=== PATIENT | male | born 1970 | race Caucasian/White ===

== ENCOUNTER 2023-12-23 09:42 | Emergency (ER) | payer OTHER, SELFPAY ==
[2023-12-23 09:45] VITALS: BP 147/86
--- NOTE | 2023-12-23 10:12 | ED.GENMED ---
History of Present Illness
General
Chief Complaint: Flank Pain
Source: patient and spouse
Exam Limitations: none
Time Seen by Provider: 12/23/23 10:06
Nursing documentation reviewed up to this point in time: agreed with
Travel History
Have you had any contact with someone who has COVID-19?: No
Do you have any symptoms of coronavirus? Fever > 100 degrees, chills, cough, shortness of breath, sore throat, loss of taste or smell, muscle aches, or headache?: No
History of Present Illness
History of Present Illness:
Patient presents to ED secondary to urinary difficulty since yesterday, along with sudden onset of right lower abdominal pain radiating down to his groin and back since this morning. Patient has taken ibuprofen without relief in symptoms. Denies
fever or chills. Denies diarrhea. Denies trauma. Denies back pain. Denies inability to urinate. There is family history of kidney stones. Patient denies previous history of similar symptoms.
Past History
Past History
ED Past Medical History: None
ED Past Surgical History: Orthopedic
Social History
Tobacco: Non-smoker
Alcohol: None
Drug: None
Personal:
Living: with family
Review of Systems
Review of Systems
Allergies reviewed?: Yes
All Other Systems: ROS reviewed and negative except as documented in HPI and ROS
Constitutional: Reports no symptoms; Denies fever
EENT: Reports no symptoms
Respiratory: Reports no symptoms
Cardiac: Reports no symptoms
ABD/GI: Reports abdominal pain, nausea and vomiting
: Reports flank pain and urgency
Musculoskeletal: Reports no symptoms
Skin: Reports no symptoms
Neurological: Reports no symptoms
Phy Exam
Physical Exam
Physical Exam:
Physical Exam
General: moderate painful distress, not acutely ill. afebrile
Head: nc/at. eomi
Neck: supple. normal range of motion.
Abdomen: normal bowel sounds. not tender. no cva tenderness.
Neuro: alert and oriented. no focal neurological deficits
Skin: no rash
Psychiatric: well kept. interactive and cooperative
Extremities: no edema. no calf tenderness.
Course
Orders/Labs/Results
Orders:
Orders
12/23/23 10:09
Urinalysis Reflex To Culture Urgent
Date Specimen was Collected: 12/23/23
Time Specimen was Collected: 10:08
Urine Microscopic Reflex Cult Urgent
12/23/23 10:11
CT Abd/pel Without Iv Or Oral Urgent
Comment:
Reason For Exam: right flank pain
0.9% Sodium Chloride 500 ml [Nss] 500 ml IV BOLUS
Ketorolac [Toradol] 15 mg IV NOW STA
Morphine Sulfate 2 mg IV NOW STA
Ondansetron Injectable [Zofran] 4 mg IV NOW STA
12/23/23 10:14
Basic Metabolic Panel Urgent
Complete Blood Count/With Diff Urgent
12/23/23 10:48
HYDROmorphone [Dilaudid] 0.5 mg IV NOW STA
Abnormal Lab Results
12/23/23 12/23/23
10:09 10:14
MCH 31.9 H pg
(27.0-31.0)
Absolute Neuts (auto) 6.7 H 10^3/uL
(1.4-6.5)
Lymphocytes % 18.2 L %
(20.5-51.1)
Glucose 143 H mg/dl
(70-99)
Urine Ketones 1+ A
(Negative)
Ur Occult Blood Reflex 3+ A
(Negative)
Urine RBC 7-10 A /HPF
(0-2)
12/23/23 10:14
12/23/23 10:14
Vital Signs
Initial and Last Documented VS:
Initial Vital Signs
Temp Pulse BP Pulse Ox
97.8 F 73 147/86 98
12/23/23 09:45 12/23/23 09:45 12/23/23 09:45 12/23/23 09:45
Last Documented Vital Signs
Temp Pulse Resp BP Pulse Ox
97.8 F 71 16 138/88 99
12/23/23 09:45 12/23/23 11:50 12/23/23 11:50 12/23/23 11:50 12/23/23 11:50
MDM/Problems Addressed
MDM/Problems Addressed:
History/exam and CT scan consistent with renal colic. Normal renal function and patient able to void freely. Pt with sig. improvement in symptoms after treatment. Pt will be discharged home with urine strainer, to the care of his spouse, with
referral to urology for outpatient evaluation. Return precautions provided, i.e. fever/inability to urinate/worsening pain. Pt expresses understanding at time of discharge.
*Critical Care Note
Total Time (30-74mins, 75-104mins- exclusive of procedures): Not Applicable
ED Attending Note
-
Portions of this chart may have been created with voice recognition software.� Occasional wrong word or��sound alike� substitutions may have occurred due to the inherent limitations of voice recognition software.
Discharge Plan
Departure
Patient Disposition: Home (Routine Discharge)
Date of Disposition: 12/23/23
Time of Disposition: 11:43
Patient with high blood pressure during this ER visit?: Yes
Discharge Problem:
Renal colic
Instructions: Renal Colic (DC)
Prescriptions:
New
oxycodone-acetaminophen [Percocet] 5-325 mg Tablet
1 tab PO Q6HPRN PRN (Reason: pain) Qty: 15 0RF
tamsulosin [Flomax] 0.4 mg Capsule
0.4 mg PO DAILY Qty: 7 0RF
ondansetron 4 mg Tablet,Disintegrating
4 mg PO TIDPRN PRN (Reason: nausea/vomiting) Qty: 12 0RF
No Action
acetaminophen [Tylenol Extra Strength] 500 mg Tablet
1,000 mg PO Q6HPRN PRN (Reason: mild pain)
amoxicillin-pot clavulanate [amoxicillin-pot clavulanate] 875-125 mg tablet
1 tab PO Q12 Qty: 14 0RF
oxycodone 5 mg tablet
5 - 10 mg PO Q4HPRN PRN (Reason: moderate to severe pain) Qty: 14 0RF
Referrals:
Yeyo Harper MD [Family Provider] -
Lisandro Betts Jr., MD [Active] -
Activity Restrictions/Additional Instructions:
As discussed, please follow-up with referred urologist for further evaluation and treatment. Please return to ED with worsening symptoms, i.e. fever/inability urinate/worsening pain. Your prescriptions have been sent electronically to [facility] pharmacy
in [place].
Interventions
Interventions:
*Risk Screen - Suicide Last Done: 12/23/23 10:24
*General Assessment Last Done: 12/23/23 10:24
*Neglect/Abuse Screening Last Done: 12/23/23 10:24
ED- Fall Risk Assessment Last Done: 12/23/23 11:54
*ED COVID-19 Vaccine History Last Done: 12/23/23 10:24
*Nursing Disposition Last Done: 12/23/23 11:54
WW-Pkddln-Qfdsqmnlcl Assessment Last Done: 12/23/23 10:23
ED-Male Genitourinary Assessment Last Done: 12/23/23 10:23
Discharge Date and Time
Discharge Date/Time: 12/23/23 11:55
Print Language: BULGARIAN
[2023-12-23 10:19] LABS: Urine Albumin Negative (Neg - Trace); Urine Bilirubin Negative (Negative); Urine Character Clear (Clear); Urine Color Yellow; Urine Glucose Negative (Negative); Urine Ketone 1+ (Negative); Urine Leukocyte Negative (Negative); Urine Nitrite Negative (Negative); Urine Occult Blood 3+ (Negative); Urine Specific Gravity 1.025 (<1.030); Urine Urobilinogen Negative (Neg - 1+)
[2023-12-23] MEDS: MORPHINE SULFATE 2 MG IV (10:20)
[2023-12-23] MEDS: NSS 500 IV (10:21)
[2023-12-23] MEDS: TORADOL 15 MG IV (10:21)
[2023-12-23] MEDS: ZOFRAN 4 MG IV (10:21)
[2023-12-23 10:27] LABS: % Basophils 0.4 % (0-2); % Eosinophils 0.5 % (0-6); % Immature Granulocytes 0.3 % (0-0.5); % Lymphocytes 18.2 % (20.5-51.1); % Neutrophils 73.6 % (42.2-75.2); Absolute Eosinophils 0.1 10^3/uL (0-0.7); Absolute Lymphocytes 1.7 10^3/uL (1.2-3.4); Absolute Monocytes 0.6 10^3/uL (0.1-0.6); Absolute Neutrophils 6.7 10^3/uL (1.4-6.5); Hemoglobin 15.2 g/dL (13.0-18.0); Mean Corp Hgb Conc. 36.2 g/dL (33.0-37.0); Mean Corpuscular Hgb 31.9 pg (27.0-31.0); Mean Corpuscular Volume 88.2 fL (80.0-94.0); Mean Platelet Volume 9.3 fL (7.4-10.4); Nucleated Red Blood Cells % 0 % (-); Platelet Count 182 10^3/uL (130-400); Red Blood Cell Count 4.76 10^6/uL (4.70-6.10); Red Cell Dist. Width 12.5 % (11.5-14.5); White Blood Cell Count 9.1 10^3/uL (4.8-10.8)
[2023-12-23 10:39] LABS: Blood Urea Nitrogen 19 mg/dl (9-20); Calcium 9.6 mg/dl (8.4-10.2); Carbon Dioxide 24 mmol/L (22-30); Chloride 102 mmol/L (98-107); Glucose 143 mg/dl (70-99); Potassium 3.8 mmol/L (3.5-5.1); Sodium 135 mmol/L (135-145); eGFR > 60.00
[2023-12-23 10:47] LABS: Urine Amorphous Seen; Urine Squamous Cell 0-2 /LPF (Few)
[2023-12-23 10:48] LABS: Urine Granular Cast 0-2 /LPF (0); Urine Hyaline Cast 0-2 /LPF (0-2)
[2023-12-23 10:49] LABS: Urine White Cell 0-2 /HPF (0-5)
[2023-12-23] MEDS: DILAUDID 0.5 MG IV (10:49)
[2023-12-23 11:50] VITALS: BP 138/88
== END 2023-12-23 11:55 | disposition home or self-care (01) ==
LOC: EMR 09:42
PROVIDERS: EMERGENCY PHYSICIAN Emergency Medicine; FAMILY PHYSICIAN Family Medicine
DX: N23 Unspecified renal colic (principal); R11.2 Nausea with vomiting, unspecified; R10.31 Right lower quadrant pain; R39.15 Urgency of urination
CPT/HCPCS: 99284; 96374; 96375 ×3; 96361 ×2; 74176; 80048; 81003; 81015; 85025